=== PATIENT | male | born 1965 | race Caucasian/White ===

== ENCOUNTER 2022-10-13 17:46 | Inpatient (IN) | payer OTHER ==
[~2022-10-13] VITALS: Ht 162.6 cm; Wt 67.1 kg
--- NOTE | 2022-10-13 18:11 | NUR ---
PT BARNEY VIA GURNEY TO BED 12.
[2022-10-13 18:12] VITALS: BP 112/82
--- NOTE | 2022-10-13 18:20 | NUR ---
57M BIBA FROM HOME FOR CHEST PAIN SINCE YESTERDAY. EMS REPORTS GIVING NITROGLYCERIN, 1.2MG, AND ASPIRIN, 324MG, WITH RELIEF. PT REPORTS A CONSTANT, PRESSURE LIKE, 5/10 PAIN. PT STATES, PRIOR TO MEDICATION GIVEN MY MEDICS, PAIN WAS 10/10. PT REPORTS FEELING SOB, PT O2 SAT IS 96% ON RA UPON ASSESSMENT. PT DENIES COLD SYMPTOMS, N/V/D, OR MEDS TODAY FOR CHEST PAIN. PT PLACED ON BEDSIDE MONITOR, DR. MCCAIN AT BEDSIDE EVALUATING PT.
--- NOTE | 2022-10-13 18:41 | NUR ---
JAYMIE FLORES (DAUGHTER) [phone]
[2022-10-13 19:07] LABS: BASOPHILS % (AUTO) 0.5 % (0.0-2.0); EOSINOPHILS # (AUTO) 0.1 K/uL (0-0.4); EOSINOPHILS % (AUTO) 2.6 % (0.0-4.0); HEMATOCRIT 33.4 % (36-52); LYMPHOCYTES # (AUTO) 0.6 K/uL (2.0-11.5); LYMPHOCYTES % (AUTO) 11.9 % (20.5-51.1); MEAN CORPUSCULAR HEMOGLOBIN 31 pg (27-31); MEAN CORPUSCULAR HGB CONC 33 g/dL (33-37); MONOCYTES # (AUTO) 0.4 K/uL (0.8-1.0); MONOCYTES % (AUTO) 7.5 % (1.7-9.3); NEUTROPHILS # (AUTO) 4.2 K/uL (1.8-7.7); NEUTROPHILS % (AUTO) 77.5 % (42.2-75.2); PLATELET COUNT (AUTO) 221 K/uL (140-450); RED BLOOD CELL COUNT(AUTO) 3.51 MIL/uL (4.20-6.10); RED CELL DISTRIBUTION WIDTH 13.7 % (11.6-13.7); WHITE BLOOD COUNT (AUTO) 5.4 K/uL (4.8-10.8)
[2022-10-13 19:45] LABS: ALBUMIN 3.7 g/dL (3.4-5.0); CARBON DIOXIDE 26.9 mmol/L (21-32); POTASSIUM 4.9 mmol/L (3.5-5.1); TOTAL BILIRUBIN 0.4 mg/dL (0.0-1.0)
[2022-10-13 19:47] LABS: CREATININE 7.4 mg/dL (0.6-1.3)
[2022-10-13] MEDS ORDERED: NACL 0.9% 500 ML IV ONE (21:00)
--- NOTE | 2022-10-13 21:26 | NUR ---
Pt to CT
--- NOTE | 2022-10-13 22:00 | NUR ---
Pt back from CT.
[2022-10-13] MEDS ORDERED: NITROGLYCERIN 0.4 MG TAB SL ONE (23:35)
[2022-10-13] MEDS ORDERED: HYDROcodone/APAP 5/325 MG 1 TAB TAB PO PRN (23:35)
[2022-10-13] MEDS ORDERED: MORPHINE SULFATE 4 MG/ML SYR IVP PRN (23:35)
[2022-10-13] MEDS ORDERED: ACETAMINOPHEN 325 MG TAB PO PRN (23:35)
[2022-10-14] MEDS ORDERED: INSU100S22 SUBQ
[2022-10-14] MEDS ORDERED: ISOSORB (00:04)
[2022-10-14] MEDS ORDERED: AMLO5TAB PO (00:05)
[2022-10-14] MEDS ORDERED: HYDR-1098 PO (00:08)
[2022-10-14] MEDS ORDERED: CLOP75TA55 PO (00:08)
[2022-10-14] MEDS ORDERED: FURO40TA9 PO (00:08)
--- NOTE | 2022-10-14 00:50 | NUR ---
Patient lying in bed, A/Ox4, chest rise and fall symmetrical, no c/o pain or s/s of distress.
--- NOTE | 2022-10-14 02:25 | NUR ---
Patient lying in bed, A/Ox4, chest rise and fall symmetrical, no c/o pain or s/s of distress.
[2022-10-14 03:57] LABS: BASOPHILS % (AUTO) 0.6 % (0.0-2.0); EOSINOPHILS # (AUTO) 0.1 K/uL (0-0.4); EOSINOPHILS % (AUTO) 2.9 % (0.0-4.0); LYMPHOCYTES # (AUTO) 0.9 K/uL (2.0-11.5); MEAN CORPUSCULAR HEMOGLOBIN 32 pg (27-31); MEAN CORPUSCULAR HGB CONC 33 g/dL (33-37); MEAN CORPUSCULAR VOLUME 94.9 fL (80-94); MONOCYTES # (AUTO) 0.4 K/uL (0.8-1.0); MONOCYTES % (AUTO) 9.6 % (1.7-9.3); NEUTROPHILS % (AUTO) 65.9 % (42.2-75.2); PLATELET COUNT (AUTO) 196 K/uL (140-450); RED BLOOD CELL COUNT(AUTO) 3.16 MIL/uL (4.20-6.10); RED CELL DISTRIBUTION WIDTH 13.6 % (11.6-13.7); WHITE BLOOD COUNT (AUTO) 4.5 K/uL (4.8-10.8)
[2022-10-14 04:06] LABS: ANION GAP 18.9 (8-16); CARBON DIOXIDE 26.3 mmol/L (21-32); POTASSIUM 4.2 mmol/L (3.5-5.1)
--- NOTE | 2022-10-14 04:08 | NUR ---
Patient lying in bed, A/Ox4, chest rise and fall symmetrical, no c/o pain or s/s of distress.
[2022-10-14 04:10] LABS: MAGNESIUM 2.5 mg/dL (1.8-2.4); PHOSPHORUS 5.4 mg/dL (2.5-4.9)
[2022-10-14 04:13] LABS: CREATININE 7.6 mg/dL (0.6-1.3)
--- NOTE | 2022-10-14 06:40 | NUR ---
Patient lying in bed, A/Ox4, chest rise and fall symmetrical, no c/o pain or s/s of distress.
--- NOTE | 2022-10-14 06:51 | NUR ---
Patient BG 84. Patient given sandwich and juice. Patient eating and drinking juice without difficulty.
--- NOTE | 2022-10-14 07:20 | NUR ---
Change of shift report given to AM shift nurse Sera THOMAS. AM shift nurse Sera RN verbalized understanding of report, no further questions.
--- NOTE | 2022-10-14 08:00 | NUR ---
RECEIVED PT IN [facility] AOX4. DENIES PAIN OR DISCOMOFRT. NSR ON MONITOR. NAD SAFETY MAINTAINED
[2022-10-14] MEDS ORDERED: ASPIRIN 81 MG TAB.CHEW PO SCH (09:00)
[2022-10-14] MEDS ORDERED: NON-FORMULARY ITEM (Insulin Glargine,Hum.rec.anlog (Lantus Solostar) 10 UNIT) SUBQ SCH (09:00)
[2022-10-14] MEDS: INSULIN LANTUS 100 UNITS/ML 10 ML VIAL SUBQ SCH (09:00)
[2022-10-14] MEDS: ATORVASTATIN 20 MG TAB PO SCH (09:51)
[2022-10-14] MEDS: amLODIPine 5 MG TAB PO SCH (09:58)
[2022-10-14] MEDS: CLOPIDOGREL 75 MG TAB PO SCH (09:59)
[2022-10-14] MEDS: FUROSEMIDE 40 MG TAB PO SCH ×2 (09:59→21:59)
--- NOTE | 2022-10-14 10:00 | NUR ---
PT RESTING IN [facility] NO CHANGES NOTED
--- NOTE | 2022-10-14 12:27 | NUR ---
PATIENT HAS BEEN SCREENED AND CATEGORIZED MODERATE NUTRITION RISK. PATIENT WILL BE SEEN WITHIN 3-5 DAYS OF ADMISSION. 10/16/2212/12/[address]
[2022-10-14] MEDS: hydrALAZINE 25 MG TAB PO SCH ×3 (12:53→17:00)
[2022-10-14] MEDS: ISOSORBIDE MONONITRATE 30 MG TABER PO SCH (12:54)
--- NOTE | 2022-10-14 14:10 | NUR ---
PT BROUGHT TO CT BY MARTHA ROOM 118 Addendum: 10/14/22 at 1524 by [email or web address] PT MOVED TO DIALYSIS WITH MARTHA ROOM 118
--- NOTE | 2022-10-14 14:30 | NUR ---
PER DR RO PT WILL HAVE STRESS TEST TOMORROW AT 1600. NPO AFTER LUNCH TOMORROW.
--- NOTE | 2022-10-14 17:10 | NUR ---
PT RETURNED TO BED 12 FROM DIALYSIS. 2 L REMOVED WITH VITALS STABLE DURING PROCEDURE PER RN MU. NO PAIN REPORTED BY PT.
--- NOTE | 2022-10-14 21:45 | NUR ---
CALLED AND SPOKE TO PHARMACY FOR HEPARIN ORDER, STATED "NEEDED PTT INR PRIOR TO ADMINISTRATION". MEDICATION HELD AT THIS TIME. WILL BE CONTACTING ADMITTING MD FOR ORDERS
--- NOTE | 2022-10-14 22:30 | NUR ---
Patient will be admitted to care of SUNNY VALENTIN. Admited to TELEMETRY. Will go to room 114. Belongings list completed. Report to MARTHA CENTENO. TRANSFER OF CARE.
[2022-10-14 23:06] VITALS: BP 165/79
--- NOTE | 2022-10-14 23:53 | NUR ---
PER PT. HE IS INSULIN DEPENDENT DIABETIC - NPO EXCEPTS MEDS - FOR ERICK COHEN AT 1600 - WILL REFER TO POLYSOMNOGRAPHY TECH
--- NOTE | 2022-10-14 23:55 | NUR ---
DOT REVIEWED THE HEP. 5,000 SQ STILL ON RED HIGH LIGHTED - BROWSE PYXIS THERE IS RECORD THE HEPARIN IS PULLED OUT TODAY AT PAST 9PM - WILL REFER THE ER NURSE ABOUT THIS MATTER . Addendum: 10/15/22 at 0016 by Sindi Ricardo RN LINN PRICE OF ER CALLED ME SHE SAID SHE DID NOT GIVE HEP . SQ BEC. ON THAT TIME THERE IS NO PTT , INR ORDER YET - THAT 'S WHY SHE REFERRED THIS MATTER TO DR. BRONSON - AND FELIX SANCHEZ DOCTOR'S ORDER PTT , INR .- WILL REFER NTHIS MATTER TO PHARMACIST . Addendum: 10/15/22 at 0019 by Sindi Ricardo RN THE NAME LINN IN THE ABOVE NURSE'S NOTE IS AN ERROR , INSTEAD OF FELIX LANCASTER
--- NOTE | 2022-10-15 | NUR ---
Francis abdul in [facility] - 10/15/22 at 0009 by MOIZ SPOKE WITH AND VERBAL ORDER FOR PT AND INR.
--- NOTE | 2022-10-15 | NUR ---
SPOKE WITH MD BRONSON AND RECEIVED VERBAL PHONE ORDER FOR PT/PTT AND INR.
[2022-10-15] MEDS ORDERED: DEXTROSE 50% 50 ML SYR IVP PRN (00:20)
--- NOTE | 2022-10-15 00:30 | NUR ---
BLOOD SUGAR 88 - PT DENIES ANY S/SX OF HYPOGLYCEMIC HE SAID HE IS OK , WILL CLOSELY WATCH - D550 STANDBY . , CALL LIGHT WITHIN REACH .
[2022-10-15 00:58] LABS: PROTHROMBIN TIME 11.1 secs (10.8-13.4)
[2022-10-15 04:00] VITALS: BP 140/89
--- NOTE | 2022-10-15 04:00 | NUR ---
NO S/SX OF ACUTE DISTRESS NOTED , CALL LIGHT WITHIN REACH .
--- NOTE | 2022-10-15 06:00 | NUR ---
AWAKE , NO COMPLAIN MADE -
[2022-10-15 07:05] LABS: BASOPHILS % (AUTO) 0.9 % (0.0-2.0); EOSINOPHILS # (AUTO) 0.2 K/uL (0-0.4); EOSINOPHILS % (AUTO) 4.4 % (0.0-4.0); HEMOGLOBIN 10.8 g/dL (12.0-18.0); LYMPHOCYTES # (AUTO) 0.9 K/uL (2.0-11.5); LYMPHOCYTES % (AUTO) 21.6 % (20.5-51.1); MEAN CORPUSCULAR HEMOGLOBIN 32 pg (27-31); MEAN CORPUSCULAR HGB CONC 34 g/dL (33-37); MEAN CORPUSCULAR VOLUME 93.7 fL (80-94); MONOCYTES # (AUTO) 0.4 K/uL (0.8-1.0); MONOCYTES % (AUTO) 10.1 % (1.7-9.3); NEUTROPHILS # (AUTO) 2.8 K/uL (1.8-7.7); PLATELET COUNT (AUTO) 210 K/uL (140-450); RED BLOOD CELL COUNT(AUTO) 3.41 MIL/uL (4.20-6.10); RED CELL DISTRIBUTION WIDTH 13.2 % (11.6-13.7); WHITE BLOOD COUNT (AUTO) 4.4 K/uL (4.8-10.8)
[2022-10-15 07:22] LABS: ANION GAP 7.1 (8-16); POTASSIUM 4.1 mmol/L (3.5-5.1)
[2022-10-15 07:25] LABS: CREATININE 5.9 mg/dL (0.6-1.3); MAGNESIUM 2.4 mg/dL (1.8-2.4); PHOSPHORUS 4.7 mg/dL (2.5-4.9)
--- NOTE | 2022-10-15 07:35 | NUR ---
ENDORSED PT FOR CONT. OF CARE .
[2022-10-15] MEDS: BLOOD GLUCOSE MONITORING 1 DEV DEV FS SCH ×4 (07:51→20:28)
[2022-10-15 08:00] VITALS: BP 153/71
[2022-10-15] MEDS: INSULIN LANTUS 100 UNITS/ML 10 ML VIAL SUBQ SCH (09:15)
[2022-10-15] MEDS: ISOSORBIDE MONONITRATE 30 MG TABER PO SCH (09:34)
[2022-10-15] MEDS: ATORVASTATIN 20 MG TAB PO SCH (09:34)
[2022-10-15] MEDS: hydrALAZINE 25 MG TAB PO SCH ×3 (09:34→17:00)
[2022-10-15] MEDS: amLODIPine 5 MG TAB PO SCH (09:35)
[2022-10-15] MEDS: FUROSEMIDE 40 MG TAB PO SCH ×2 (09:35→20:19)
[2022-10-15] MEDS: CLOPIDOGREL 75 MG TAB PO SCH (09:35)
[2022-10-15 12:00] VITALS: BP 143/73
[2022-10-15] MEDS: DEXTROSE 10% 1,000 ML IV SCH (13:55)
--- NOTE | 2022-10-15 14:39 | NUR ---
DC PLANNING PT REQUESTED SW CALL HIS DAUGHTER TO GATHER COLLATERAL INFORMATION, THEREFORE, SW CALLED PTS DAUGHTER, JAYMIE. JAYMIE REPORTS PT RESIDES IN A SINGLE STORY HOME WITH HIS MOTHER, AT THE ADDRESS LISTED ON FILE. JAYMIE IDENTIFIES HERSELF PTS EMERGENCY CONTACT. JAYMIE DENIES AD IN PLACE AND DECLINED AD OFFERED BY SHUN. PT'S LAST VISIT WITH PCP IS REPORTED TO BE OVER 6 MONTHS. SPOKE TO JAYMIE ABOUT IMPORTANCE OF FOLLOW UP CARE, JAYMIE RECEPTIVE AND PROVIDED SW WITH PERMISSION TO SCHEDULE FOLLOW UP ONCE CLEARED FOR DC. PT REPORTED TO BE MEDICATION COMPLIANT AND RECEIVES MEDIATION FROM [facility] IN [place]. PT REPORTED TO BE AMBULATORY WITH NO DME ASSISTANCE. PT IS REPORTED TO REQUIRE ASSISTANCE WITH ADL'S WHICH FAMILY AIDS WITH. JAYMIE DENIES MENTAL HEALTH HX. JAYMIE REPORTS PT HAS HX OF SUBSTANCE USE; METH HOWEVER, PT HAS BEEN SOBER FOR TWO YRS. PT RECEIVES DIALYSIS [place] W/ [facility] [place], [phone], CHAIR TIME1-5PM ON . TRANSPORTATION PROVIDED BY [employer], . PT HAS HX OF DIABETES THAT IS REPORTED TO BE WELL MANAGED. JAYMIE DENIES HX OF HH, SNF. HOSPICE CARE. JAYMIE REPORTS DC PLAN IS FOR PT TO RETURN HOME WITH FAMILY PROVIDING TRANSPORTATION , WHEN MEDICALLY STABLE. SHUN INQUIRED ON RESOURCES NEEDED, JAYMIE DECLINED AT THIS TIME. Addendum: 10/15/22 at 1440 by Jaqueline BETANCOURT Amended: Links added.
[2022-10-15] MEDS ORDERED: REGADENOSON 0.4 MG/5 ML SYR IV SCH (16:00)
[2022-10-15 16:41] VITALS: BP 150/81
[2022-10-15] MEDS: INSULIN LISPRO SLIDING SCALE 100 UNITS/ML VIAL SUBQ PRN (20:31)
[2022-10-15 21:03] VITALS: BP 135/75
[2022-10-16 00:38] VITALS: BP 140/75
--- NOTE | 2022-10-16 01:31 | NUR ---
CALLED [facility] AND LEFT MESSAGE THAT PT HAS DIALYSIS TODAY.
[2022-10-16 04:40] VITALS: BP 150/70
--- NOTE | 2022-10-16 05:25 | NUR ---
rn notes patient remains on room air, no sob noted. VSS all shift. BS close to normal range, given coverage. Lexiscan was apparently done yesterday AM, pending results. Plan is to have HD today.
[2022-10-16] MEDS: BLOOD GLUCOSE MONITORING 1 DEV DEV FS SCH ×4 (06:15→21:46)
[2022-10-16 07:40] LABS: CARBON DIOXIDE 26.2 mmol/L (21-32); POTASSIUM 4.2 mmol/L (3.5-5.1)
[2022-10-16 07:51] LABS: EOSINOPHILS # (AUTO) 0.1 K/uL (0-0.4); EOSINOPHILS % (AUTO) 2.1 % (0.0-4.0); HEMATOCRIT 31.4 % (36-52); HEMOGLOBIN 10.6 g/dL (12.0-18.0); LYMPHOCYTES # (AUTO) 0.8 K/uL (2.0-11.5); LYMPHOCYTES % (AUTO) 19.5 % (20.5-51.1); MEAN CORPUSCULAR HEMOGLOBIN 32 pg (27-31); MEAN CORPUSCULAR HGB CONC 34 g/dL (33-37); MEAN CORPUSCULAR VOLUME 93.6 fL (80-94); MONOCYTES # (AUTO) 0.3 K/uL (0.8-1.0); MONOCYTES % (AUTO) 6.9 % (1.7-9.3); NEUTROPHILS % (AUTO) 70.5 % (42.2-75.2); PLATELET COUNT (AUTO) 215 K/uL (140-450); RED BLOOD CELL COUNT(AUTO) 3.35 MIL/uL (4.20-6.10); RED CELL DISTRIBUTION WIDTH 13.1 % (11.6-13.7); WHITE BLOOD COUNT (AUTO) 4.2 K/uL (4.8-10.8)
[2022-10-16 07:53] LABS: CREATININE 7.7 mg/dL (0.6-1.3)
[2022-10-16 08:00] VITALS: BP 148/76
[2022-10-16 08:16] LABS: MAGNESIUM 2.5 mg/dL (1.8-2.4); PHOSPHORUS 5.8 mg/dL (2.5-4.9)
[2022-10-16] MEDS: hydrALAZINE 25 MG TAB PO SCH ×3 (09:47→17:00)
[2022-10-16] MEDS: ATORVASTATIN 20 MG TAB PO SCH (09:48)
[2022-10-16] MEDS: amLODIPine 5 MG TAB PO SCH (09:48)
[2022-10-16] MEDS: CLOPIDOGREL 75 MG TAB PO SCH (09:48)
[2022-10-16] MEDS: INSULIN LANTUS 100 UNITS/ML 10 ML VIAL SUBQ SCH (09:48)
[2022-10-16] MEDS: ISOSORBIDE MONONITRATE 30 MG TABER PO SCH (09:51)
[2022-10-16] MEDS: FUROSEMIDE 40 MG TAB PO SCH ×2 (09:51→21:40)
[2022-10-16 12:00] VITALS: BP 151/80
[2022-10-16] MEDS: DEXTROSE 10% 1,000 ML IV SCH (14:18)
[2022-10-16] MEDS ORDERED: ATOR20TA40 PO (15:57)
[2022-10-16 16:03] VITALS: BP 160/85
[2022-10-16 20:00] VITALS: BP 160/68
[2022-10-16] MEDS: INSULIN LISPRO SLIDING SCALE 100 UNITS/ML VIAL SUBQ PRN (21:42)
[2022-10-17] VITALS: BP 137/66
[2022-10-17 04:00] VITALS: BP 149/69
--- NOTE | 2022-10-17 07:25 | NUR ---
RECEIVED BEDSIDE REPORT FROM KAVEH SENIOR SALES OPERATIONS MANAGER RN, FOR CONTINUITY OF CARE. PT A/OX4, ABLE TO MAKE NEEDS KNOWN. R EYE CATARACT. ROOM AIR, RESPIRATIONS EVEN AND UNLABORED. SR ON MONITOR. 20G IV TO R WRIST AND 20G IV TO RAC, BOTH SALINE LOCK. CONTINENT OF BOWEL AND BLADDER, UP AD TREMAINE. L AV SHUNT. MILD WEAKNESS. STANDARD PRECAUTION. CALL LIGHT WITHIN REACH. BED LOCKED AND IN LOWEST POSITION.
--- NOTE | 2022-10-17 07:33 | NUR ---
REPORT GIVEN TO MARTHA CUADRA FOR CONTINUITY OF CARE. ALL QUESTIONS ANSWERED.
[2022-10-17 07:49] LABS: MAGNESIUM 2.2 mg/dL (1.8-2.4); PHOSPHORUS 4.8 mg/dL (2.5-4.9)
[2022-10-17 07:50] LABS: BASOPHILS # (AUTO) 0.1 K/uL (0.00-0.22); BASOPHILS % (AUTO) 1.7 % (0.0-2.0); EOSINOPHILS # (AUTO) 0.2 K/uL (0-0.4); EOSINOPHILS % (AUTO) 5.2 % (0.0-4.0); HEMATOCRIT 31.4 % (36-52); HEMOGLOBIN 10.6 g/dL (12.0-18.0); LYMPHOCYTES # (AUTO) 1.1 K/uL (2.0-11.5); LYMPHOCYTES % (AUTO) 27.3 % (20.5-51.1); MEAN CORPUSCULAR HEMOGLOBIN 31 pg (27-31); MEAN CORPUSCULAR HGB CONC 34 g/dL (33-37); MEAN CORPUSCULAR VOLUME 92.6 fL (80-94); MONOCYTES # (AUTO) 0.4 K/uL (0.8-1.0); MONOCYTES % (AUTO) 10.1 % (1.7-9.3); NEUTROPHILS # (AUTO) 2.3 K/uL (1.8-7.7); NEUTROPHILS % (AUTO) 55.7 % (42.2-75.2); PLATELET COUNT (AUTO) 232 K/uL (140-450); RED BLOOD CELL COUNT(AUTO) 3.39 MIL/uL (4.20-6.10); RED CELL DISTRIBUTION WIDTH 13.1 % (11.6-13.7); WHITE BLOOD COUNT (AUTO) 4.1 K/uL (4.8-10.8)
[2022-10-17] MEDS: BLOOD GLUCOSE MONITORING 1 DEV DEV FS SCH ×4 (07:53→23:15)
--- NOTE | 2022-10-17 07:59 | NUR ---
GAVE BEDSIDE REPORT TO NURSE HUDSON PT IS STABLE. Addendum: 10/18/22 at 0159 by Anabel Uribe LVN WRONG TIME
[2022-10-17 08:00] VITALS: BP 130/54
[2022-10-17 08:16] LABS: ANION GAP 13.7 (8-16); CARBON DIOXIDE 28.2 mmol/L (21-32); POTASSIUM 3.9 mmol/L (3.5-5.1)
[2022-10-17] MEDS: ATORVASTATIN 20 MG TAB PO SCH (08:54)
[2022-10-17] MEDS: hydrALAZINE 25 MG TAB PO SCH ×3 (08:54→17:54)
[2022-10-17] MEDS: FUROSEMIDE 40 MG TAB PO SCH ×2 (08:55→23:13)
[2022-10-17] MEDS: CLOPIDOGREL 75 MG TAB PO SCH (08:55)
[2022-10-17] MEDS: ISOSORBIDE MONONITRATE 30 MG TABER PO SCH (08:55)
[2022-10-17] MEDS: amLODIPine 5 MG TAB PO SCH (08:55)
[2022-10-17] MEDS: INSULIN LANTUS 100 UNITS/ML 10 ML VIAL SUBQ SCH (08:58)
[2022-10-17 12:00] VITALS: BP 126/61
[2022-10-17 16:00] VITALS: BP 122/60
--- NOTE | 2022-10-17 16:00 | NUR ---
PT AMBULATING AROUND THE ROOM, NO SIGNS OF WEAKNESS. NO C/O PAIN OR DISCOMFORT. ALL COMFORT NEEDS MET AT THIS TIME.
--- NOTE | 2022-10-17 19:30 | NUR ---
ENDORSED BEDSIDE REPORT TO MALINI BUSINESS PROFESSOR WATERSIDE WORKER, FOR CONTINUITY OF CARE.
--- NOTE | 2022-10-17 19:31 | NUR ---
RECEIVED REPORT FROM DAY SHIFT NURSE KHALIF FOR CONTINUITY OF CARE. PT AWAKE, JUST WENT OUT FROM THE REST ROOM AND BACK TO BED. NO DISTRESS NOTED. BREATHING EVEN AND UNLABORED. NO C/O OF PAIN. CALL LIGHT WITHIN REACH. SAFETY PRECAUTIONS IN PLACE.
--- NOTE | 2022-10-17 19:59 | NUR ---
GAVE BEDSIDE REPORT TO NURSE LAURA. PT IS STABLE.
[2022-10-17 20:00] VITALS: BP 107/71
--- NOTE | 2022-10-17 20:00 | NUR ---
RECEIVED REPORT FROM SLURRY CONTROL OPERATOR HELPER NURSE HIRAM FOR CONTINUITY OF CARE. PATIENT IS A&O X4. PATIENT IS ON ROOM AIR, BREATHING IS NORMAL WITH SYMMETRICAL RISE AND FALL OF CHEST. PATIENT'S IV IS A 20G R WRIST, AND A 20G RAC; NO FLUIDS RUNNING (SALINE LOCKED). PATIENT HAS [facility] AV SHUNT FOR HEMODIALYSIS. LAST HD WAS YESTERDAY (10/16), 2L WERE TAKEN OUT. BED IS IN LOWEST POSITION, WHEELS LOCKED, CALL LIGHT IN PLACE. WILL CONTINUE TO OBSERVE PATIENT.
--- NOTE | 2022-10-17 23:30 | NUR ---
ADMINISTERED 2100 MEDICATIONS TO PATIENT. PATIENT TOLERATED WELL WITHOUT ANY ISSUES SWALLOWING. PATIENT WAS SLEEPING WHEN I ENTERED THE ROOM. PATIENT'S DEMEANOR WAS GOOD. PATIENT WAS COOPERATIVE. BREATHING WAS NORMAL WITH SYMMETRICAL RISE AND FALL OF CHEST. WILL CONTINUE TO OBSERVE PATIENT.
--- NOTE | 2022-10-18 02:30 | NUR ---
LOOKED IN ON PATIENT. PATIENT WAS SLEEPING; LYING SUPINE ON HIS LEFT SIDE. BREATHING WAS NORMAL WITH SYMMETRICAL RISE AND FALL OF CHEST. WILL CONTINUE TO OBSERVE PATIENT.
--- NOTE | 2022-10-18 04:30 | NUR ---
LOOKED IN ON PATIENT. PATIENT WAS SLEEPING WHEN I ENTERED ROOM. WOKE PATIENT UP FOR VITALS. PATIENT WAS VERY COOPERATIVE. PATIENT WENT BACK TO SLEEP AFTER VITALS WERE OBTAINED. WILL CONTINUE TO OBSERVE PATIENT.
[2022-10-18] MEDS: BLOOD GLUCOSE MONITORING 1 DEV DEV FS SCH ×2 (06:53→11:40)
--- NOTE | 2022-10-18 07:00 | NUR ---
BS WAS OBTAINED. BS WAS 96, NO COVERAGE WAS NEEDED. WILL CONTINUE TO OBSERVE PATIENT.
--- NOTE | 2022-10-18 07:30 | NUR ---
ENDORSED TO DAY SHIFT NURSE FOR CONTINUITY OF CARE. PATIENT IS STABLE.
--- NOTE | 2022-10-18 07:30 | NUR ---
RECEIVED REPORT FROM CLOTH PRINTER HELPER NURSE LAURA. NO S/S OF DISTRESS. CALL LIGHT IN PLACE. ALL SAFETY MEASURES IN PLACE. TERESA SCAN RESULTS STILL NOT AVAILABLE
[2022-10-18] MEDS: ISOSORBIDE MONONITRATE 30 MG TABER PO SCH (08:38)
[2022-10-18] MEDS: FUROSEMIDE 40 MG TAB PO SCH (08:38)
[2022-10-18] MEDS: hydrALAZINE 25 MG TAB PO SCH ×2 (08:38→13:00)
[2022-10-18] MEDS: INSULIN LANTUS 100 UNITS/ML 10 ML VIAL SUBQ SCH (08:39)
[2022-10-18] MEDS: ATORVASTATIN 20 MG TAB PO SCH (08:39)
[2022-10-18] MEDS: amLODIPine 5 MG TAB PO SCH (08:39)
[2022-10-18] MEDS: CLOPIDOGREL 75 MG TAB PO SCH (08:39)
[2022-10-18 09:34] LABS: BASOPHILS % (AUTO) 0.6 % (0.0-2.0); EOSINOPHILS # (AUTO) 0.2 K/uL (0-0.4); EOSINOPHILS % (AUTO) 2.9 % (0.0-4.0); HEMOGLOBIN 10.6 g/dL (12.0-18.0); LYMPHOCYTES # (AUTO) 0.7 K/uL (2.0-11.5); LYMPHOCYTES % (AUTO) 10.8 % (20.5-51.1); MEAN CORPUSCULAR HEMOGLOBIN 31 pg (27-31); MEAN CORPUSCULAR HGB CONC 33 g/dL (33-37); MEAN CORPUSCULAR VOLUME 93.3 fL (80-94); MONOCYTES # (AUTO) 0.5 K/uL (0.8-1.0); MONOCYTES % (AUTO) 7.7 % (1.7-9.3); NEUTROPHILS # (AUTO) 4.8 K/uL (1.8-7.7); PLATELET COUNT (AUTO) 213 K/uL (140-450); RED BLOOD CELL COUNT(AUTO) 3.43 MIL/uL (4.20-6.10); RED CELL DISTRIBUTION WIDTH 13.3 % (11.6-13.7); WHITE BLOOD COUNT (AUTO) 6.1 K/uL (4.8-10.8)
[2022-10-18 09:51] LABS: ANION GAP 18.2 (8-16); CARBON DIOXIDE 24.3 mmol/L (21-32); POTASSIUM 4.5 mmol/L (3.5-5.1)
[2022-10-18 09:52] LABS: CREATININE 8.4 mg/dL (0.6-1.3)
[2022-10-18 09:57] LABS: MAGNESIUM 2.4 mg/dL (1.8-2.4)
[2022-10-18 12:00] VITALS: BP 146/94
--- NOTE | 2022-10-18 12:24 | NUR ---
DISCUSSED DC WITH PT, WILL NOTIFY PT DAUGHTER FOR BILL CUTTER TIME.
[2022-10-18 15:09] VITALS: BP 146/94
--- NOTE | 2022-10-18 16:29 | NUR ---
PT DC'D HOME VIA PRIVATE VEHICLE WITH FAMILY. ALL PERSONAL BELONGINGS IN POSSESSION. DC FORMS DISCUSSED AND SIGNED. NO S/S IN DISTRESS. PT TRANSPORTED TO VEHICLE VIA WHEEL CHAIR. IV'S REMOVED CANULAS INTACT. ID BANDS REMOVED AND DISCARDED
== END 2022-10-18 16:15 | disposition home or self-care (01) | DRG 203 ==
LOC: MED 17:46 → OBSVTOIN 23:31 → MTU 23:31
PROVIDERS: ADMIT Hospitalist; ATTEND Emergency Medicine
PROC: 5A1D70Z Performance of Urinary Filtration, Intermittent, Less than 6 Hours Per Day (ICD-10-PCS; principal; 2022-10-14)
PROC: 5A1D70Z Performance of Urinary Filtration, Intermittent, Less than 6 Hours Per Day (ICD-10-PCS; 2022-10-16)
PROC: 4A02XM4 Measurement of Cardiac Total Activity, External Approach (ICD-10-PCS; 2022-10-16)
PROC: 3E033HZ Introduction of Radioactive Substance into Peripheral Vein, Percutaneous Approach (ICD-10-PCS; 2022-10-16)
DX: R07.89 Other chest pain (principal); I12.0 Hypertensive chronic kidney disease with stage 5 chronic kidney disease or end stage renal disease; E11.22 Type 2 diabetes mellitus with diabetic chronic kidney disease; D63.8 Anemia in other chronic diseases classified elsewhere; N18.6 End stage renal disease; H40.9 Unspecified glaucoma; Z20.822 Contact with and (suspected) exposure to COVID-19; Z86.73 Personal history of transient ischemic attack (TIA), and cerebral infarction without residual deficits; Z79.4 Long term (current) use of insulin; J98.11 Atelectasis
CPT/HCPCS: 36415; 71045; 71260; 80048; 80053; 82948; 83735; 83880; 84100; 84484; 85025; 85610; 85730; 87081; 93017; 96360; 99285; A9500; A9502; J1644; J1815; J2785; J7030; Q9967